=== PATIENT | female | born 1995 | race African-American/Black ===

== ENCOUNTER 2017-09-23 13:43 | Emergency (ER) | payer BC, MEDICAID ==
[~2017-09-23] VITALS: Ht 157.5 cm; Wt 59.0 kg
[2017-09-23 13:46] VITALS: BP 132/71
--- NOTE | 2017-09-23 13:49 | NUR ---
pt placed to D
--- NOTE | 2017-09-23 13:52 | NUR ---
PT [facility] [employer] A PREBOOK; PT C/O RIGHT FOOT PAIN; PT STATES SHE STEPPED ON GLASS YESTERDAY AND STATES "I THINK THERE'S STILL SOME STUCK INSIDE." no obvious glass noted, painful to touch, no redness or swelling noted. PD at bedside HX DENIES
[2017-09-23] MEDS ORDERED: NEOMYCIN/POLYMYXIN/BACITRACIN 0.9 GM/1 PKT TP ONE (14:13)
--- NOTE | 2017-09-23 14:16 | NUR ---
Patient discharged with v/s stable. Written and verbal after care instructions given and explained. Patient verbalized understanding. Police with in custody. All questions addressed prior to discharge. Advised to follow up with PMD.
[2017-09-23 14:20] VITALS: BP 132/71
== END 2017-09-23 14:16 ==
LOC: MED 13:43
DX: Z02.89 Encounter for other administrative examinations (principal); S91.331A Puncture wound without foreign body, right foot, initial encounter; W25.XXXA Contact with sharp glass, initial encounter; Y93.89 Activity, other specified; Y92.89 Other specified places as the place of occurrence of the external cause; Y99.8 Other external cause status
CPT/HCPCS: 99283